=== PATIENT | female | born 2000 | race African-American/Black ===

== ENCOUNTER 2020-06-10 09:13 | Emergency (ER) | payer MEDICAID ==
[~2020-06-10] VITALS: Ht 162.6 cm; Wt 63.0 kg
[2020-06-10 10:02] LABS: BASOPHILS % 0.3 % (0.0-2.0); EOSINOPHILS % 1.5 % (0.0-5.0); HEMATOCRIT. 37.6 % (36.0-48.0); HEMOGLOBIN. 12.5 g/dL (12.0-16.0); LYMPHOCYTES % 20.5 % (20.0-50.0); MEAN CORPUSCULAR HEMOGLOBIN 29.7 pg (28.0-32.0); MEAN CORPUSCULAR VOLUME 89.1 fL (81.0-99.0); MEAN PLATELET VOLUME 9.5 fl (7.4-10.4); MONOCYTES % 7.7 % (2.0-8.0); PLATELET 225 x1000/uL (130-400); RED BLOOD CELL COUNT 4.22 mill/uL (4.2-5.4)
[2020-06-10 10:08] LABS: CHLORIDE 109 mEq/L (98-107)
[2020-06-10 10:37] LABS: B-HCG QUANTITATIVE 16177 mIU/mL (<3)
[2020-06-10 12:57] LABS: CLARITY URINE CLOUDY (CLEAR); COLOR URINE YELLOW (YELLOW); KETONES URINE NEGATIVE (NEGATIVE); LEUKOCYTE ESTERASE URINE 3+ (NEGATIVE); NITRITE URINE NEGATIVE (NEGATIVE); OCCULT BLOOD URINE NEGATIVE (NEGATIVE); PROTEIN URINE TRACE (NEGATIVE)
[2020-06-10] MEDS ORDERED: METR500T MT (13:14)
[2020-06-10 13:25] VITALS: BP 100/55
== END 2020-06-10 13:27 | disposition home or self-care (01) ==
LOC: ER 09:13
DX: O20.0 Threatened abortion (principal); O26.891 Other specified pregnancy related conditions, first trimester; O23.41 Unspecified infection of urinary tract in pregnancy, first trimester; I49.9 Cardiac arrhythmia, unspecified; Z3A.01 Less than 8 weeks gestation of pregnancy
CPT/HCPCS: 36415; 76801; 80053; 81003; 84702; 85025; 86850; 86900; 93005; 99285

== ENCOUNTER 2020-11-18 10:18 | Emergency (ER) | payer MEDICAID ==
[~2020-11-18] VITALS: Ht 165.1 cm; Wt 66.0 kg
[~2020-11-18 10:18] MED LIST: METR500T MT
[2020-11-18] MEDS ORDERED: DEXA0.5E3 MT (11:36)
[2020-11-18 11:45] VITALS: BP 100/67
[2020-11-18 13:14] LABS: CLARITY URINE CLOUDY (CLEAR); COLOR URINE YELLOW (YELLOW); KETONES URINE TRACE (NEGATIVE); LEUKOCYTE ESTERASE URINE 1+ (NEGATIVE); NITRITE URINE NEGATIVE (NEGATIVE); OCCULT BLOOD URINE NEGATIVE (NEGATIVE); PROTEIN URINE 1+ (NEGATIVE); SPECIFIC GRAVITY URINE 1.026 (1.005-1.030)
[2020-11-18] MEDS ORDERED: CEPH500T MT (13:18)
== END 2020-11-18 13:37 | disposition home or self-care (01) ==
LOC: ER 10:18
DX: K12.0 Recurrent oral aphthae (principal); N39.0 Urinary tract infection, site not specified
CPT/HCPCS: 81003; 81025; 99283